=== PATIENT | male | born 1970 | race Caucasian/White ===

== ENCOUNTER 2020-09-01 10:42 | Observation (INO) | payer OTHER ==
[~2020-09-01] VITALS: Ht 170.2 cm; Wt 91.2 kg
[~2020-09-01 10:42] MED LIST: IBUPROFEN PO
[2020-09-01] MEDS ORDERED: SODIUM CHLORIDE 0.9% 1000ML 1,000 ML IV STA (10:48)
[2020-09-01] MEDS ORDERED: ONDANSETRON HCL INJ 2MG/ML 2ML 2 MG/ML VIAL IV ONE (11:00)
[2020-09-01] MEDS ORDERED: FAMOTIDINE 20 MG/2 ML VIAL IV ONE (11:00)
[2020-09-01] MEDS ORDERED: SODIUM CHLORIDE 0.9% 1000ML 2,000 ML ONE (11:09)
[2020-09-01] MEDS ORDERED: THIAMINE HCL INJ 100 MG/ML 2ML VIAL ONE (11:10)
[2020-09-01] MEDS ORDERED: PANTOPRAZOLE 40 MG 10ML VIAL ONE (11:10)
[2020-09-01] MEDS ORDERED: FOLIC ACID 5 MG/ML VIAL ONE (11:10)
[2020-09-01] MEDS ORDERED: MULTIVITAMINS INJECTION ONE ×2 (11:11→12:09)
[2020-09-01] MEDS ORDERED: MULTIVITAMINS- 12 INJECTION 10 ML, FOLIC ACID MDV 5 MG, THIAMINE HCL INJ 100 MG in SODI... IV ONE ×3 (11:15→18:00)
[2020-09-01] MEDS ORDERED: LORAZEPAM INJ 2 MG/ML VIAL IV ONE (11:15)
--- OUTSIDE RECORDS SUMMARY | 2020-09-01 11:38 | XMS REPORT | Continuity of Care Document ---
Author Author [facility] Organization [facility] Address [address] [place] [address] Phone Unavailable Care Team Providers Care Database Administrator Name Role Phone TRCAIE HERNANDEZ P.A. Attphys Unavailable NIKHIL MCKEON M.D. Attphys Unavailable Problems Condition Name Condition Details Condition Category Status Onset Date Resolution Date Last Treatment Date Treating Clinician Comments Source History of hyperlipidemia History of hyperlipidemia Problem Resolved [facility] History of Right shoulder pain History of Right shoulder pain Probl em Resolved [facility] History of Sprain of right hip History of Sprain of right hip Probl em Resolved [facility] History of Testicular hypofunction History of Testicular hypofun ction Problem Resolved [facility] History of urinary frequency History of urinary frequency Problem Re solved [facility] Knee swelling, right Knee swelling, right Problem Active [facility] Constipation, chronic Constipation, chronic Problem Active [facility] Enlarged prostate with lower urinary tract symptoms (L UTS) Enlarged prostate with lower urinary tract symptoms (LUTS) Problem Active [facility] Pain, foot, chronic, right Pain, foot, chronic, right Problem Active [facility] Pain, neck Pain, neck Problem [facility] Cervical paraspinal muscle spasm Cervical paraspinal muscle spas m Problem Active [facility] Prostate cancer screening Prostate cancer screening Problem Active [facility] External hemorrhoid External hemorrhoid Problem Active [facility] Puncture wound of right foot, initial encounter Punctu re wound of right foot, initial encounter Problem Active [facility] Encounter for wound care Encounter for wound care Problem Active [facility] Hyperlipidemia Hype rlipidemia Active 12/10/2013 [facility] Problem Active 2013-12-10 16:30:42 M jose angel Hodge Allergies, Adverse Reactions, Alerts Allergy Name Allergy Type Status Severity Reaction(s) Onset Date Inacti ve Date Treating Clinician Comments Source No Known Drug Allergies No Known Drug Allergies Active [facility] Family History Family Member Diagnosis Comments Start Date Stop Date Source Unknown Family Member Family history of Denial Of Any Significant Medical History Family History [facility] Unknown Family Member Family History 2013-12-10 16:30:42 2 16:30:42 Shady Hodge Mother Family history of cardiac disorder [facility] Mother Family history of hypertension [facility] Father Family history of cardiac disorder [facility] Social History Social Habit Start Date Stop Date Quantity Comments Source Social History 2013-12-10 16:30:42 2013-12-10 16:30:42 [facility] Smoking Status Start Date Stop Date Source Never smoked tobacco (finding) [facility] Ex-smoker (finding) [facility] Medications Ordered Medication Name Filled Medication Name Start Date Stop Da te Current Medication? Ordering Clinician Indication Dosage Frequency Signature (SIG) Comments Components Source Dexamethasone 4 MG Oral Tablet Dexamethasone 4 MG Oral Table t 2020-08-22 00:00:00 Yes TRACIE HERNANDEZ P.A. Take one tablet d aily X ten days [facility] No Reported Medications 2013-12-10 16:30:42 Yes (Active) [facility] Immunizations Ordered Immunization Name Filled Immunization Name Date Status Comments Source Tdap (Boostrix) 2020-08-22 14:49:00 Completed [facility] Vital Signs Vital Name Observation Time Observation Value Comments Source Systolic blood pressure 2020-08-22 14:01:00 130 mm[Hg] Loca tion: LUE; Position: Sitting [facility] Diastolic blood pressure 2020-08-22 14:01:00 77 mm[Hg] Loc ation: LUE; Position: Sitting [facility] Body height 2020-08-22 14:01:00 67 [in_us] [facility] Weight 2020-08-22 14:01:00 210.3125 [lb_av] [facility] Body mass index (BMI) [Ratio] 2020-08-22 14:01:00 32.94 kg/m2 [facility] Body temperature 2020-08-22 14:01:00 97.9 [degF] Method: Temporal [facility] Heart Rate 2020-08-22 14:01:00 80 /min [facility] Respiratory rate 2020-08-22 14:01:00 16 /min [facility] BP Systolic 2018-06-03 12:48:00 131 mm[Hg] Location: [place] on: Sitting [facility] BP Diastolic 2018-06-03 12:48:00 87 mm[Hg] Location: [place] on: Sitting [facility] Temperature 2018-06-03 12:48:00 98.4 [degF] Method: Temporal [facility] Weight 2018-06-03 12:48:00 205 [lb_av] [facility] Body Mass Index Calculated 2018-06-03 12:48:00 32.11 kg/m2 [facility] Height 2018-06-03 12:48:00 67 [in_us] [facility] Heart Rate 2018-06-03 12:48:00 52 /min [facility] Respiration Rate 2018-06-03 12:48:00 16 /min [facility] Procedures Procedure Date / Time Performed Performing Clinician Sourc e XRAY Foot series [id number] 2020-08-22 00:00:00 [facility] [[facility]] CBC (INCLUDES DIFF/PLT) 2018-06-03 00:00:00 [facility] [[facility]] CMP W/EGFR 2018-06-03 00:00:00 [facility] [[facility]] LIPID PANEL 2018-06-03 00:00:00 [facility] [[facility]] PSA, TOTAL 2018-06-03 00:00:00 [facility] [[facility]] CBC (INCLUDES DIFF/PLT) 2018-06-02 00:00:00 [facility] [[facility]] CMP W/EGFR 2018-06-02 00:00:00 [facility] [[facility]] LIPID PANEL 2018-06-02 00:00:00 [facility] [[facility]] PSA, TOTAL 2018-06-02 00:00:00 [facility] History of Tonsillectomy With Adenoidectomy [facility] History of Knee Surgery [facility] History of Surgery Vas Deferens Vasectomy [facility] Encounters Start Date/Time End Date/Time Encounter Type Admission Type [facility] Facility Care Department Encounter ID Source 2020-08-22 14:00:00 2020-08-22 14:00:00 Appointment; TRACIE HERNANDEZ P.A. CAMPOS, BERTHA, P.A. ESVIN [facility] [id number] [facility] 2018-06-03 12:45:00 2018-06-03 12:45:00 Appointment; DENISE MCKEON M.D. WILLISTON, HUBERT, M.D. [facility] [id number] [facility] 2017-08-25 10:00:00 2017-08-25 10:00:00 Appointment; TRACIE HERNANDEZ P.A. CAMPOS, BERTHA, P.A. [facility] [id number] [facility] 2017-06-01 11:15:00 2017-06-01 11:15:00 Appointment; TRACIE HERNANDEZ P.A. CAMPOS, BERTHA, P.A. ESVIN [facility] [id number] [facility] 2016-10-01 09:30:00 2016-10-01 09:30:00 Appointment; TRACIE HERNANDEZ P.A. CAMPOS, BERTHA, P.A. [facility] [id number] [facility] 2016-09-25 09:30:00 2016-09-25 09:30:00 Appointment; TRACIE HERNANDEZ P.A. CAMPOS, BERTHA, P.A. [facility] [id number] [facility] 2013-12-10 10:30:42 2013-12-10 10:30:42 Outpatient [facility] [place] [id number] Results Test Description Test Time Test Comments Results Result Comments Source XRAY Foot series [id number] 2020-08-22 14:58:00 EXAM: XR RIGHT FOOT 3 VIEWSDATE: 08/22/2020 14:59 CDTINDICATION: - S91.331A Puncture wound without foreign body, right foot,initial encounterCOMPARISON: NoneTECHNIQUE: AP, lateral and oblique radiographs of the footFINDINGS: No acute fracture or malalignment is identified. No joint spacenarrowing, osteophytes, or cysts.No soft tissue abnormality is identified.IMPRESSION: Normal exam of the right foot.--Read by: Amadou Jaffe MDDictated Date/time: 10/28/20 15:13Electronically Signed by: Amadou Jaffe MD 08/22/2015:14FINAL REPORT [facility]
--- OUTSIDE RECORDS SUMMARY | 2020-09-01 11:38 | XMS REPORT | Continuity of Care Document ---
Author Author [employer] Address Unknown Phone Unavailable Care Team Providers Care Slicing Machine Operator/Tender Name Role Phone [employer] Unavailable Un available Problems Problem Status Onset Date Classification Date Reported Comments Source Hyperlipidemia Active 12/10/2013 [facility] Medications Medication Details Route Status Patient Instructions Ordering Provider Order Date Source No Reported Medications (Acti ve) Active [facility] Allergies, Adverse Reactions, Alerts Substance Category Reaction Severity Reaction type Status Date Reported Comments Source No Known Drug Allergies drug a llergy drug aller gy Active [facility] Immunizations No Data Provided for This Section Results No Data Provided for This Section Pathology Reports No Data Provided for This Section Diagnostic Reports No Data Provided for This Section Consultation Notes No Data Provided for This Section Discharge Summaries No Data Provided for This Section History and Physicals No Data Provided for This Section Vital Signs No Data Provided for This Section Encounters Location Location Details Encounter Type Encounter Number Reason For Visit Attending Provider ADM Date DC Date Status Source AUDIT [id number] 12/10/2013 12/10/2013 [facility] Procedures No Data Provided for This Section Assessment and Plan No Data Provided for This Section Plan of Care No Data Provided for This Section Social History Social History Date Source Marital History - Currently (Active) Never A Smoker (Active) Being A Social Drinker (Active) Drug Use Comments: steroids (305.90); (Active) 12/10/2013 [facility] Family History Value Date S ource Family history of Denial Of Any Signific ant Medical History (Active) 12/10/2013 [facility] Advance Directives Order Name Results Value Date Source Advance Directives Advance Dir ectives No Advance Directives available. 12/10/2013 [facility] Functional Status No Data Provided for This Section
--- NOTE | 2020-09-01 11:44 | NUR ---
called for [facility] transport
--- OUTSIDE RECORDS SUMMARY | 2020-09-01 11:49 | XMS REPORT | Continuity of Care Document ---
Author Author [email or web address] Address Unknown Phone Unavailable Care Team Providers Care Shellfish Harvester Name Role Phone [employer] Unavailable Un available Problems Problem Status Onset Date Classification Date Reported Comments Source Hyperlipidemia Active 12/10/2013 [facility] Medications Medication Details Route Status Patient Instructions Ordering Provider Order Date Source No Reported Medications (Acti ve) Active [facility] Allergies, Adverse Reactions, Alerts Substance Category Reaction Severity Reaction type Status Date Reported Comments Source No Known Drug Allergies drug a llergy drug aller gy Active [facility] Immunizations No Data Provided for This [...] ADM Date DC Date Status Source AUDIT [id number] 12/10/2013 12/10/2013 [facility] Procedures No Data Provided for This Section Assessment and Plan No Data Provided for This Section Plan of Care No Data Provided for This Section Social History Social History Date Source Marital History - Currently (Active) Never A Smoker (Active) Being A Social Drinker (Active) Drug Use Comments: steroids (305.90); (Active) 12/10/2013 [facility] Family History Value Date S ource Family history of Denial Of Any Signific ant Medical History (Active) 12/10/2013 [facility] Advance Directives Order Name Results Value Date Source Advance Directives Advance Dir ectives No Advance Directives available. 12/10/2013 [facility] Functional Status No Data Provided for This Section
--- OUTSIDE RECORDS SUMMARY | 2020-09-01 11:49 | XMS REPORT | Continuity of Care Document ---
Author Author [facility] Organization [facility] Address [address] [place] [address] Phone Unavailable Care Team Providers Care Boat Person Name Role Phone TRACIE HERNANDEZ P.A. Attphys Unavailable NIKHIL MCKEON M.D. Attphys Unavailable Problems Condition Name Condition Details Condition Category Status Onset Date Resolution Date Last Treatment Date Treating Clinician Comments Source History of hyperlipidemia History of hyperlipidemia Problem Resolved [facility] History of Right shoulder pain History of Right shoulder pain Probl em Resolved [facility] History of Sprain of right hip History of Sprain of right hip Probl em Resolved [facility] History of Testicular hypofunction [...] Pain, neck Pain, neck Problem [facility] Cervical paraspinal muscle spasm Cervical paraspinal muscle spas m Problem Active [facility] Prostate cancer screening Prostate cancer screening Problem Active [facility] External hemorrhoid External hemorrhoid Problem Active [facility] Puncture wound of right foot, initial encounter Punctu re wound of right foot, initial encounter Problem Active [facility] Encounter for wound care Encounter for wound care Problem Active [facility] Hyperlipidemia Hype rlipidemia Active 12/10/2013 [facility] Problem Active 2013-12-10 16:30:42 M jose angel Hodge Allergies, Adverse Reactions, Alerts Allergy Name Allergy Type Status Severity Reaction(s) Onset Date Inacti ve Date Treating Clinician Comments Source No Known Drug Allergies No Known Drug Allergies Active [facility] Family History Family Member Diagnosis Comments Start Date Stop Date Source Unknown Family Member Family history of Denial Of Any Significant Medical History Family History [facility] Unknown Family Member Family History 2013-12-10 16:30:42 2 16:30:42 Shady Hodge Mother Family history of cardiac disorder [facility] Mother Family history of hypertension [facility] Father Family history of cardiac disorder [facility] Social History Social Habit Start Date Stop Date Quantity Comments Source Social History 2013-12-10 16:30:42 2013-12-10 16:30:42 [facility] Smoking Status Start Date Stop Date Source Never smoked tobacco (finding) [facility] Ex-smoker (finding) [facility] Medications Ordered Medication Name Filled Medication Name Start Date Stop Da te Current Medication? Ordering Clinician Indication Dosage Frequency Signature (SIG) Comments Components Source Dexamethasone 4 MG Oral Tablet Dexamethasone 4 MG Oral Table t 2020-08-22 00:00:00 Yes TRACIE HERNANDEZ P.A. Take one tablet d aily X ten days [facility] No Reported Medications 2013-12-10 16:30:42 Yes (Active) [facility] Immunizations Ordered Immunization Name Filled Immunization Name [...] Physicians Body height 2020-08-22 14:01:00 67 [in_us] [facility] Weight 2020-08-22 14:01:00 210.3125 [lb_av] [facility] Body mass index (BMI) [Ratio] 2020-08-22 14:01:00 32.94 kg/m2 [facility] Body temperature 2020-08-22 14:01:00 97.9 [degF] Method: Temporal [facility] Heart Rate 2020-08-22 14:01:00 80 /min [facility] Respiratory rate 2020-08-22 14:01:00 16 /min [facility] BP Systolic 2018-06-03 12:48:00 131 mm[Hg] Location: [place] on: Sitting [facility] BP Diastolic 2018-06-03 12:48:00 87 mm[Hg] Location: [place] on: Sitting [facility] Temperature 2018-06-03 12:48:00 98.4 [degF] Method: Temporal [facility] Weight 2018-06-03 12:48:00 205 [lb_av] [facility] Body Mass Index Calculated 2018-06-03 12:48:00 32.11 kg/m2 [facility] Height 2018-06-03 12:48:00 67 [in_us] [facility] Heart Rate 2018-06-03 12:48:00 52 /min [facility] Respiration Rate 2018-06-03 12:48:00 16 /min [facility] Procedures Procedure Date / Time Performed Performing Clinician Sourc e XRAY Foot series [id number] 2020-08-22 00:00:00 [facility] [[facility]] CBC (INCLUDES DIFF/PLT) 2018-06-03 00:00:00 [facility] [[facility]] CMP W/EGFR 2018-06-03 00:00:00 [facility] [[facility]] LIPID PANEL 2018-06-03 00:00:00 [facility] [[facility]] PSA, TOTAL 2018-06-03 00:00:00 [facility] [[facility]] CBC (INCLUDES DIFF/PLT) 2018-06-02 00:00:00 [facility] [[facility]] CMP W/EGFR 2018-06-02 00:00:00 [facility] [[facility]] LIPID PANEL 2018-06-02 00:00:00 [facility] [[facility]] PSA, TOTAL 2018-06-02 00:00:00 [facility] History of Tonsillectomy With Adenoidectomy [facility] History of Knee Surgery [facility] History of Surgery Vas Deferens Vasectomy [facility] Encounters Start Date/Time End Date/Time Encounter Type Admission Type [facility] Facility Care Department Encounter ID Source 2020-08-22 14:00:00 2020-08-22 14:00:00 Appointment; TRACIE HERNANDEZ P.A. CAMPOS, BERTHA, P.A. ESVIN [facility][Note 3] [id number] [facility] 2018-06-03 12:45:00 2018-06-03 12:45:00 Appointment; DENISE MCKEON M.D. WILLISTON, HUBERT, M.D. [facility] [id number] [facility] 2017-08-25 10:00:00 2017-08-25 10:00:00 Appointment; TRACIE HERNANDEZ P.A. CAMPOS, BERTHA, P.A. [facility] [id number] [facility] 2017-06-01 11:15:00 2017-06-01 11:15:00 Appointment; TRACIE HERNANDEZ P.A. CAMPOS, BERTHA, P.A. E[facility]IN [facility] [id number] [facility] 2016-10-01 09:30:00 2016-10-01 09:30:00 Appointment; TRACIE HERNANDEZ P.A. CAMPOS, BERTHA, P.A. [facility] [id number] [facility] 2016-09-25 09:30:00 2016-09-25 09:30:00 Appointment; TRACIE HERNANDEZ P.A. CAMPOS, BERTHA, P.A. [facility] [id number] [facility] 2013-12-10 10:30:42 2013-12-10 10:30:42 Outpatient [facility] [id number] Results Test Description Test Time Test Comments Results Result Comments Source XRAY Foot series [id number] 2020-08-22 14:58:00 EXAM: XR RIGHT FOOT 3 [...] Signed by: Amadou Jaffe MD 08/22/2015:14FINAL REPORT [facility]
--- NOTE | 2020-09-01 12:10 | Diagnostic Imaging Report ---
EXAMINATION: CXR 1 VIEW - HOPD COMPARISON: None INDICATION: ^look for appy, diverticulitis, sbo, pancreatitis, hernia, ^[id number] ^[id number] DISCUSSION: Frontal view of the chest obtained at 1127 hours. HEART AND MEDIASTINUM: The cardiomediastinal silhouette is unremarkable. LINES: None. LUNGS: The lungs are well inflated and clear. No pneumonia or pulmonary edema. PLEURA: No pleural effusion or pneumothorax. BONES AND SOFT TISSUES: No focal osseous lesion. The soft tissues are normal. IMPRESSION: No acute cardiopulmonary disease. Signed by: Dr. Keaton Haines MD on 09/01/2020 12:07 PM
[2020-09-01] MEDS ORDERED: OMEPRAZOLE20 MG PO (12:18)
[2020-09-01] MEDS ORDERED: PANTOPRAZOLE 40 MG 10ML VIAL IV STA (12:25)
--- NOTE | 2020-09-01 12:27 | NUR ---
MASONIOR CALLED ALREADY FOR COVID SWAB TO GO TO LAB.
[2020-09-01 13:15] VITALS: BP 127/87
--- NOTE | 2020-09-01 13:35 | NUR ---
Pt received from [facility] at this time. Pt is aox4 and able to verbalize needs. Breaths are even and unlabored. Pt was admitted to for chest pain, vomiting. Pt denies any pain at this time. Pt is on IV fluids.
--- NOTE | 2020-09-01 15:07 | Diagnostic Imaging Report ---
Examination: CT BRAIN [facility] History:50-year-old male with upper extremity tingling and dizziness. Comparison studies:None Technique: Axial images were obtained from the skull base to the vertex. Coronal and sagittal images reconstructed from the axial data. Dose modulation, iterative reconstruction, and/or weight based adjustment of the mA/kV was utilized to reduce the radiation dose to as low as reasonably achievable. Intravenous contrast: None Findings: Scalp: No abnormalities. Bones: No fractures, blastic or lytic lesions. Brain sulci: Appropriate for age. Ventricles: Normal in size and configuration. No hydrocephalus. Extra-axial space: No abnormalities. Parenchyma: No abnormal densities. No masses, hemorrhage, or acute or chronic cortical based vascular insults.. Sellar/suprasellar region: No abnormalities. Craniocervical junction: Patent foramen magnum. No Chiari one malformation. Incidental findings: Calcification of the right petrous and bilateral cavernous and clinoid internal carotid arteries. Impression: No acute intracranial abnormalities. Preliminary report provided by Dr. Vinod Gomes, neuroradiology fellow, on 09/01/2020 at 1407 hours. Signed by: Dr. Vero Guillory M.D. on 09/01/2020 3:04 PM
[2020-09-01 15:16] LABS: CREATINE KINASE MB 2.1 ng/mL (0-5.0)
[2020-09-01 15:54] VITALS: BP 111/75
--- NOTE | 2020-09-01 19:15 | NUR ---
Bedside report received from morning nurse. Pt alert and oriented to name, right side lying in bed HOB flat, denies pain at this time. Call light within reach. Goal: rest.
[2020-09-01 20:00] VITALS: BP 112/70
[2020-09-01 21:16] VITALS: BP 112/70
--- NOTE | 2020-09-01 22:15 | NUR ---
Blood drawn for cardiac lab, x1 stick, Pt tolerated well.
[2020-09-01 23:14] LABS: CREATINE KINASE MB 1.7 ng/mL (0-5.0)
[2020-09-02] VITALS (8 sets, daily range): BP systolic 117–146; BP diastolic 73–102
[2020-09-02] MEDS ORDERED: ONDANSETRON HCL 4 MG ORAL DISINTEGRATING TAB PO PRN (04:30)
[2020-09-02 05:52] LABS: BASOPHILS % 0.5 % (0.0-1.0); EOSINOPHILS # (AUTO) 0.2 (0.0-0.4); EOSINOPHILS % 2.6 % (0.0-6.0); HEMOGLOBIN 16.1 g/dL (14.0-18.0); LYMPHOCYTES # (AUTO) 1.6 (1.0-3.2); LYMPHOCYTES % 21.3 % (18.0-39.1); MEAN CORPUSCULAR HEMOGLOBIN 29.1 pg (28-32); MEAN CORPUSCULAR HGB CONC 32.9 g/dL (31-35); MEAN CORPUSCULAR VOLUME 88.6 fL (81-99); MONOCYTES # (AUTO) 0.6 (0.2-0.8); MONOCYTES % 7.7 % (4.4-11.3); NEUTROPHILS % 67.8 % (38.7-80.0); PLATELET COUNT 230 x10e3/uL (140-360); RED BLOOD COUNT 5.53 x10e6/uL (4.3-5.7); RED CELL DISTRIBUTION WIDTH 12.6 % (11.7-14.4)
[2020-09-02 06:18] LABS: ALANINE AMINOTRANSFERASE 14 IU/L (0-55); ALBUMIN 3.3 g/dL (3.5-5.0); ALBUMIN/GLOBULIN RATIO 1.2 (0.8-2.0); ALKALINE PHOSPHATASE 41 IU/L (40-150); ANION GAP 12.2 mmol/L (8-16); BLOOD UREA NITROGEN 7 mg/dL (7-26); BUN/CREATININE RATIO 7 (6-25); CALCIUM 8.1 mg/dL (8.4-10.2); CARBON DIOXIDE 24 mmol/L (22-29); CHLORIDE 107 mmol/L (98-107); CREATININE, SERUM 1.06 mg/dL (0.72-1.25); EST GLOMERULAR FILTRATION RATE > 60 ML/MIN (60-); GLUCOSE 84 mg/dL (74-118); MAGNESIUM 1.9 MG/DL (1.3-2.1); POTASSIUM 4.2 mmol/L (3.5-5.1); SODIUM 139 mmol/L (136-145)
[2020-09-02 07:23] LABS: CHOL/HDL RATIO 3.6 (3.9-4.7)
[2020-09-02 07:27] LABS: CREATINE KINASE 133 IU/L (30-200)
[2020-09-02] MEDS: PANTOPRAZOLE SOD 40 MG TABEC PO SCH ×2 (08:54→17:02)
--- NOTE | 2020-09-02 11:05 | Consultation ---
DATE OF CONSULTATION: Cardiology consultation REQUESTING PHYSICIAN: Dr. Argueta. REASON FOR CONSULTATION: Chest pain. HISTORY OF PRESENT ILLNESS: Mr. Spain is a 50-year-old male who reports that he came into the ER after a night of drinking and then woke up the following morning with some chest pain and also bilateral upper extremity numbness and pain and also the same feeling in his legs and for that reason, he got quite worried and sought urgent care services. He continues to have brief moments of chest tightness and also endorses anxiety and fatigue. Denies any fevers, chills, cough, shortness of breath, bilateral lower extremity edema, orthopnea, PND, or palpitations. He does report a pertinent history of being a former smoker and also borderline hypertensive. REVIEW OF SYSTEMS: Negative except as mentioned above. FAMILY HISTORY: Positive for coronary artery disease and PA. SOCIAL HISTORY: Endorses alcohol intake. Denies any illicit drug use or smoking. PAST SURGICAL HISTORY: Reports cholecystectomy and tonsillectomy. PHYSICAL EXAMINATION: VITAL SIGNS: Temperature 98.5, pulse 84, respiratory rate 16, blood pressure 146/98, oxygen saturation 98% on room air. GENERAL: Alert and oriented x3, resting comfortably in bed, does not appear to be in any acute distress. NECK: Supple. No JVD noted. CARDIOVASCULAR: Regular rate and rhythm. Normal S1 and S2. No murmurs, no gallops. LUNGS: Clear to auscultation throughout. No wheezing. No rhonchi or crackles. ABDOMEN: Soft, nontender. EXTREMITIES: Lower extremity, no edema. 2+ pedal pulses. NEUROLOGICAL: Alert and oriented x3 with a normal affect. CARDIOVASCULAR MEDICATIONS: None at this time. LABORATORY DATA: WBC 7.41, hemoglobin 16.1, hematocrit 49.0, and platelets 230. Sodium 139, potassium 4.2, BUN 7, creatinine 1.06, glucose 81, calcium 8.1, creatine kinase 133, and CK-MB 1.80. Troponin less than 0.001. IMAGING: Chest x-ray on admission with no acute cardiopulmonary disease noted. Brain CT scan with no acute intracranial abnormality noted. I have personally reviewed telemetry and it reflects sinus rhythm. IMPRESSION: 1. Atypical chest pain. 2. Anxiety. 3. Hypertension. RECOMMENDATION: Obtain echocardiogram this morning. Further recommendations will follow. Plan for stress test tomorrow morning given EKG abnormalities with T-wave inversions and also complains of chest pain. We will continue to follow this patient very closely. We thank you for this consultation. Dictated by Liliana Jin, [employer] MD ANGÉLICA Garzon/BRIAN /[id number]
[2020-09-03] VITALS: BP 130/84
[2020-09-03 04:00] VITALS: BP 126/95
--- NOTE | 2020-09-03 07:00 | NUR ---
Received patient resting in bed no s/s of distress. Bed low, wheels locked, side rails x2. Call light in reach will continue to monitor patient.
[2020-09-03 07:48] VITALS: BP 137/88
[2020-09-03 08:40] VITALS: BP 137/88
[2020-09-03] MEDS: PANTOPRAZOLE SOD 40 MG TABEC PO SCH ×2 (08:41→16:21)
[2020-09-03] MEDS ORDERED: REGADENOSON 0.4 MG/5 ML SYR IV ONE (09:37)
--- NOTE | 2020-09-03 10:04 | NUR ---
Patient off unit for stress test.
--- NOTE | 2020-09-03 12:40 | NUR ---
Patient back from stress test in stable condition. No s/s of distress.
[2020-09-03 15:45] VITALS: BP 140/112
[2020-09-03 15:50] VITALS: BP 138/102
--- NOTE | 2020-09-03 18:27 | NUR ---
Spoke with Dr. Javed. Stress test normal patient cleared for discharge from cardiology standpoint.
--- NOTE | 2020-09-03 18:27 | NUR ---
Spoke with Dr. Argueta informed him of normal stress test results and clearance for discharge from cardiology standpoint. Ok to discharge patient home. New orders implemented.
--- NOTE | 2020-09-03 18:36 | NUR ---
Removed patients IV. Catheter tip intact and pressure dressing applied.
--- NOTE | 2020-09-03 19:00 | NUR ---
Patient discharged from facility in stable condition. Patient gathered all personal belongings, discharge instructions, and follow up information. Left unit in wheelchair and went home via private auto. No s/s of distress leaving facility.
--- NOTE | 2020-09-03 20:32 | Progress Note ---
DATE: Cardiology Progress Note SUBJECTIVE: The patient is feeling better. Denies any chest pain or shortness of breath. OBJECTIVE: VITAL SIGNS: Temperature is 97.7, heart rate is 74, respirations are 20, blood pressure is 137/88, oxygen saturation 100% on room air. GENERAL: Well appearing. No apparent distress. CARDIOVASCULAR: Regular rate and rhythm. LUNGS: Clear to auscultation. ABDOMEN: Soft, nontender, nondistended. EXTREMITIES: No clubbing, cyanosis or edema. VASCULAR: 2+ pulses. LABORATORY DATA: Reviewed. IMPRESSION: 1. Atypical chest pain. 2. Anxiety. 3. Hypertension. RECOMMENDATIONS: His echocardiogram and stress test were normal. There is no evidence of myocardial ischemia. He has a normal ejection fraction. Continue current medications. The patient may be discharged from a cardiovascular standpoint with outpatient follow. DO SOLOMON Maynard/MODL /[id number]
--- NOTE | 2020-09-04 06:03 | Discharge Summary ---
REASON FOR DISCHARGE: 1. Chest pain, rule out AL. 2. Dizziness, resolved. HISTORY OF PRESENT ILLNESS AND HOSPITAL COURSE: See hospital chart for full details. The patient is a gentleman who presented with some atypical chest pain, left side with some associated dizziness that resolved in the emergency room and had no further episodes during his hospitalization, but he was ruled out for AL by serial enzymes, EKG, but Cardiology went ahead and performed a stress test which was unremarkable. Echo was unremarkable so once these were completed, he was cleared by Cardiology and discharged home and follow up with his primary care physician in 1 to 2 weeks as well as with Cardiology. Please see hospital chart for full details. MD WESTON Hernandez/BRIAN /[id number]
== END 2020-09-03 18:53 | disposition home or self-care (01) ==
LOC: FSED 11:02 → INTOOBSV 11:46 → ERHOLD 11:46 → MED/SURG2 13:24
PROVIDERS: ADMIT Internal Medicine; ATTEND Internal Medicine
DX: R07.89 Other chest pain (principal); R42 Dizziness and giddiness; K21.9 Gastro-esophageal reflux disease without esophagitis; E66.9 Obesity, unspecified; Z68.31 Body mass index [BMI] 31.0-31.9, adult; N18.30 Chronic kidney disease, stage 3 unspecified; Z82.49 Family history of ischemic heart disease and other diseases of the circulatory system; F41.9 Anxiety disorder, unspecified; Z20.828 Contact with and (suspected) exposure to other viral communicable diseases
CPT/HCPCS: 36415 ×2; 70450; 71045; 78452; 80053 ×2; 80061; 81003; 82550 ×2; 82553 ×2; 83735; 84484 ×2; 85025 ×2; 93017; 93306; 99284; A9502; C9113; G0378 ×3; J2060; J2405; J3411; J7030; S0164 ×2; U0002